=== PATIENT | male | born 1975 | race Caucasian/White ===

== ENCOUNTER 2016-12-09 17:51 | Emergency (ER) | payer OTHER ==
--- NOTE | ~2016-12-09 | ER ---
[facility] AGE[facility] 41 Y [address] ROOM: [place] [address] LOCATION: [facility] ADMIT DATE: 12/09/2016 ER/Outpatient Report DISCHARGE DATE: 12/09/2016 FAMILY PHYSICIAN: Дмитрий Feldman MD ATTENDING PHYSICIAN: Carlos Kasper CHIEF COMPLAINT: Lip laceration. TIME OF THE PATIENT ARRIVAL: 1751 hours. TIME OF THE PATIENT EVALUATION: 1810 hours. HISTORY OF PRESENT ILLNESS: This is a 41-year-old male who presents to the ER, who states that hour and half prior to arrival he was using a jackhammer when the handle jumped up and hit him in the mouth. His lower tooth did go through his lip causing an inner and an outer lower lip laceration. He states he did not get knocked out. He was not dazed. He has had no vomiting. Denies any neck or back pain, but states he feels a little bit nauseated. He states he is up-to-date on his tetanus shot. He denies any other problems at this time. ALLERGIES: NO KNOWN ALLERGIES. MEDICATIONS: Please see medication list nurse's notes. PAST MEDICAL HISTORY: 1. Hypertension. 2. Hypercholesterolemia. 3. Hernia repair. SOCIAL HISTORY: Denies smoking, drug, or alcohol use. REVIEW OF SYSTEMS: A 10-point review of systems was completed and was negative with the exception of those discussed in the HPI. PHYSICAL EXAMINATION: VITAL SIGNS: Height 6 feet 5 inches stated, weight 102.6 kg taken, blood pressure is 151/86, pulse 73, respirations 16, temperature 98 degrees [facility] AGE: 41 Y [address] ROOM: [place], [place] [address] LOCATION: [facility] ADMIT DATE: 12/09/2016 ER/Outpatient Report DISCHARGE DATE: 12/09/2016 FAMILY PHYSICIAN: Дмитрий Feldman MD ATTENDING PHYSICIAN: Carlos Kasper tympanically, and saturations 95% on room air. Briseyda Coma Score is 15. GENERAL: Alert, calm, well-developed male, in no acute distress. HEENT: Head, normocephalic. Eyes, pupils are equal and reactive to light. Mouth, his teeth are stable. He does have a 1.5 cm closed inner lip laceration on the lower side. EXTREMITIES: No clubbing or cyanosis. He does have full range of motion of all limbs. SKIN: He has a 1.5 lower outer lip laceration. It does go through the vermilion border on the right side. LABORATORY DATA AND X-RAYS: None were done. IMPRESSION: 1. A 1.5 cm outer lower lip laceration. 2. A 1.5 cm closed inner lip laceration. ASSESSMENT AND PLAN: I did numb the outer laceration with 1% lidocaine. I cleansed thoroughly with Betadine and flushed with normal saline. I did close the laceration using 6-0 Ethilon. The inner lip laceration was approximated well and was not actively bleeding, so we left that one alone. We will dismiss the patient to home with a wound care handout. I will send him home with a prescription for Keflex to use as directed. He needs to monitor his symptoms. I would like him to follow up with his primary care physician in 5 to 7 days for suture removal. The patient understands and agrees with the care. MAGALIE WAGONER PA-C FOR MD NEL BRYAN/danielle /[id number] d: 12/10/161 t: 12/23/16 193, OUTPATIENT REPORT
== END 2016-12-09 18:59 | disposition disaster alternative care site (69) ==
LOC: GACC 17:51
PROC: 0HQ1XZZ Repair Face Skin, External Approach (ICD-10-PCS; principal; 2016-12-09)
DX: S01.511A Laceration without foreign body of lip, initial encounter (principal); I10 Essential (primary) hypertension; E78.00 Pure hypercholesterolemia, unspecified; Z79.899 Other long term (current) drug therapy; W22.8XXA Striking against or struck by other objects, initial encounter